=== PATIENT | female | born 1955 | race Caucasian/White ===

== ENCOUNTER 2016-09-29 08:15 | Day surgery (SDC) | payer OTHER ==
[~2016-09-29] VITALS: Ht 170.2 cm; Wt 95.0 kg
--- NOTE | 2016-09-29 07:32 | PCM.HPANE ---
Patient Data Surgeon Admitting Provider: Attending Provider:Shahid Parr MD Primary Care Physician:Octaviano Patterson ND Other Provider:Jovita Shell Anesthesia Reason for Visit Iron Deficiency Anemia Ht/WT & BMI Body Mass Index Allergies Coded Allergies: aspirin (Verified Allergy, Severe, throat closes, 01/29/16) lisinopril (Verified Allergy, Mild, cough, 01/29/16) metoprolol (Verified Allergy, Unknown, 01/29/16) Past Anesthesia History Anesthesia History: Denies:: Abnormal Airway, Anesthesia Reactions, Difficult Intubation, Fam Anesthesia Reaction, Fam Malignant Hypertherm, Malignant Hyperthermia Diabetes History Hx Diabetes?: Yes MRSA MRSA: No Medications Reported Medications Liraglutide (Victoza 2-Paco)0.6 Mg/0.1 Ml Pen.injctr0.6 Mg SQ DAILY 09/29/16 Sodium Chloride (Saline Nasal Mist)126 Ml Jdav892 Ml NS 09/28/16 Prednisone (PredniSONE)10 Mg Kncits90 Mg PO DAILY Ref 0 09/28/16 Metformin 500 Mg Tablet1,000 Mg PO BID Ref 0 09/28/16 Hydrocodone-Acetaminophen 5-325 mg 1 Each Tablet1 Tablet PO Q4H PRN For Pain Ref 0 09/28/16 Fluticasone Propionate (Fluticasone Propionate Nasal)16 Gm [place].susp1 [place] NS BID #16 GM Ref 0 09/28/16 Duloxetine 60 Mg Capsule.dr60 Mg PO DAILY Ref 0 09/28/16 Insulin Glargine (Lantus U100 Insulin Vial)100 Unit/Ml Qqld672 Unit SUBQ HS #1 VIAL Ref 0 04/23/16 Tiotropium [place] (Spiriva)18 Mcg Cap.w.dev18 Mcg IH DAILY Ref 0 03/04/16 Albuterol Sulfate (Ventolin HFA Inhaler)200 Puff/18 Gm Inhaler1 Puff INH Q4 PRN For Wheezing Ref 0 01/29/16 Lactobacillus Acidophilus (Probiotic)1 Each Capsule1 Each PO DAILY 01/29/16 Nitroglycerin SL 0.4 Mg Tab.subl0.4 Mg SL PRN PRN For Chest Pain #1 01/26/15 Cyclosporine (Restasis)1 Each Droperette1 Each BOTH_EYES DAILY 01/22/15 Lorazepam 1 Mg Tablet1 Mg PO TID PRN For Anxiety Ref 0 01/22/15 Methimazole 10 Mg Lnmpps35 Mg PO QAM 01/22/15 Montelukast 10 Mg Yfcdgp70 Mg PO HS 30 Days Ref 0 01/22/15 Insulin Human Lispro (HumaLOG U100 Insulin Vial)100 Unit/Ml Unit20 Units SUBQ TID-INSULIN #20 ML Ref 3 Check blood sugars before meals and at bedtime. Use correction factor only before meals. Blood Sugar Lispro Correction: <151, 0 units; 151-175, 1 unit; 176-200, 2 units; 201-225, 3 units; 226-250, 4 units; 251-275, 5 units; 276-300, 6 units; 301-325, 7 units; 326-350, 8 units; 351-375, 9 units; 376-400, 10 units; >400, 12 units. 01/22/15 Diltiazem ER 240 Mg Cap.er.43s378 Mg PO DAILY #30 CAPSULE Ref 0 01/22/15 Simvastatin 10 Mg Muhotp02 Mg PO HS 30 Days Ref 0 01/22/[address] 40 Mg Tablet.dr40 Mg PO BID 30 Days Ref 0 01/22/15 Losartan Potassium (Cozaar)50 Mg Usipfe71 Mg PO DAILY 01/22/15 Discontinued Reported Medications Temazepam 15 Mg Zpdfmbb80 Mg PO HS PRN For Insomnia 30 Days Ref 0 09/28/16 Liraglutide (Victoza 2-Paco)0.6 Mg/0.1 Ml Pen.injctr1.2 Mg SQ DAILY 09/21/16 Pregabalin (Lyrica)50 Mg Ajhllqf37 Mg PO TID Ref 0 03/23/16 Duloxetine (Cymbalta)30 Mg Capsule.dr30 Mg PO DAILY Ref 0 03/23/16 Oxycodone ER (Oxycontin)10 Mg Tab.er.12h5 Mg PO BID PRN For Pain 01/29/16 Dextran 70/Hypromellose/Pf (Artificial Tears Drops)1 Each Droperette1-2 Drop BOTH_EYES PRN DRY EYE 01/29/16 Ergocalciferol (Vitamin D2) (Vitamin D2)50,000 Unit Ipsoxcn70,000 Unit PO QW 30 Days 01/22/15 Budesonide/Formoterol 160-4.5 mcg Inh (Symbicort 160-4.5 mcg Inh)1 Puff Inha1 Puff IH BID #1 INH Ref 0 01/22/15 Metformin 1,000 Mg Tablet1,000 Mg PO BIDWM 30 Days Ref 0 01/22/15 History History of ENT Problems?: Yes HEENT History: Positive for:: Cataracts (removed 2013) Dysphagia Hearing Problem (RIGHT EAR) Sinus Problem Denies:: Abnormal Airway Difficult Intubation Hx of Heart Problems?: Yes Cardiovascular History: Positive for:: Chest Pain Edema (hands ) Hypertension Irregular Heartbeat (tachycardia ) Denies:: Atrial Fibrillation Cardiac Surgery Congestive Heart Failure Pacemaker Valvular Heart Disease Hx of Respiratory Problem?: Yes Respiratory History: Positive for:: Asthma COPD Dyspnea Emphysema Pneumonia (09/2010) Denies:: Chest Surgery Cough Hemoptysis Tuberculosis Hx Neurologic Problems?: Yes Neurological History: Positive for:: CVA (TIA IN 1998) Dizziness Headaches Denies:: Alzheimer's Disease Dementia Parkinson's Disease Seizures Hx of GI Problems?: Yes Gastrointestinal History: Positive for:: Gastroesphageal Reflux Gastrointestinal Bleeding (polyps, ) Heartburn Hepatitis (at age 17, unknown type) Hiatal Hernia Denies:: Cirrhosis Diverticulitis Rectal Bleeding Hx of Problems?: Yes Genitourinary History: Positive for:: Urinary Tract Infection (and kidney infections ) Denies:: HX of Hemodialysis Kidney Stones HX of Peritoneal Dialysis: No Female Hx: Positive for:: Pelvic Inflammatory Problems with Breasts? (spot on rt breast watching) Denies:: Currently Hx Musculoskeletal Problems?: Yes Musculoskeletal History: Positive for:: Back Injury Denies:: Joint Replacement Musculoskeletal Trauma Hx of Psycho/Social Problems?: Yes Psycho Social History: Positive for:: Anxiety Denies:: Hx Depression Hx Surgeries?: Yes (C SECTION, TUBAL LIGATION, Capal Tunnel, Cataracts) Hx Any Other Health Problems?: Yes Other History: Positive for:: Hospitalization Thyroid Disease History Blood Transfusions: Denies:: Blood Transfusions Hx Diabetes: Yes Hx Alcohol Use: NoHx Substance Use: No Smoking Status: Former Smoker Have You Smoked inLast 12 mo: No Stop/Bang MAYURI Risk Assessment: Low Risk, <3 Yes Risk Assessment Category Category 1A: Patient has history of documented sleep apnea, and HAS NOT received any narcotic, sedative or anesthesia administration during this stay. Category 1B: Patient has history of documented sleep apnea, and HAS received any narcotic , sedative or anesthesia administration during this stay Category 2: Patient has SUSPECTED Obstructive Sleep Apnea, and HAS received any narcotic , sedative or anesthesia administration during this stay. Category 3: Patient has SUSPECTED Obstructive Sleep Apnea and HAS NOT received narcotic, sedative or anesthesia administration during this stay. Category 4: Outpatient in Procedural Areas with known sleep apnea or who screen positive for High Risk via the STOP/BANG questionnaire. Exam Exam General Appearance: Alert, Oriented X3, Cooperative, No Acute Distress HEENT/AIRWAY: MP 2 Lungs: Clear to Auscultation, Normal Air Movement Heart: Exam Unremarkable, Regular Rate/Rhythm, No Murmurs/Rubs/Gallops Plan Impression Patient chart reviewed, patient interviewed and anesthestic plan with risks, benefits, and alternatives discussed, and informed consent obtained. ASA Physical Status: ASA3 Severe Disease Anesthetic Plan: MAC Bene/Risks/Altern/Consents: Yes HP Complete Prior to Induction: Yes Vi Neal MD Sep 29, 2016 07:32
[~2016-09-29 08:15] MED LIST: ALBU18HF INH; CYCL1DRO BOTH_EYES; DILT240C89 PO; DULO60CA61 PO; FLUT16SP NS; HYDR-4003 PO; INSLIS SUBQ; INSU100V7 SUBQ; LACT1CAP65 PO; LORA1TAB PO; LOSA50TA3 PO; Lactated Ringer's 1,000 ML IV ONE; METF500T4 PO; METH10TA4 PO; MONT10TA23 PO; NITR0.4T6 SL; PANT40TA3 PO; PRE10 PO; RES15 PO; SIMV10TA4 PO; SODI126M NS; TIOT18CA3 IH
[2016-09-29] MEDS ORDERED: Propofol 10,000 mCg/mL 20 mL Inj ONE (08:16)
[2016-09-29] MEDS ORDERED: fentaNYL-PF 50 mCg/mL 2 mL Inj ONE (08:16)
[2016-09-29 08:40] VITALS: BP 136/74; PULSE 101; RESP 16; O2SAT 96
[2016-09-29] MEDS ORDERED: LIRA0.6P SQ (08:45)
[2016-09-29] MEDS ORDERED: Lactated Ringer's 1,000 ML IV SCH (09:36)
--- NOTE | 2016-09-29 09:36 | PCM.ANEP2 ---
Post Anesthesia Evaluation ASA/CMS Post Anesthesia VS in Patient's Normal Range?: Yes Resp Stable; Airway Patent?: Yes CV Function & Hydration Stable: Yes Mental Status Recovered?: Yes Pain control Satisfactory?: Yes N/V Control Satisfactory?: Yes Vi Neal MD Sep 29, 2016 09:36
--- NOTE | 2016-09-29 09:36 | PCM.ANEP1 ---
Post Anesthesia Phase 1 PACU Phase 1 Assessment Vital Signs Vital Signs Date Time Temp Pulse Resp B/P Pulse Ox O2 Delivery O2 Flow Rate FiO2 09/29/16 08:40 36.0 101 16 136/74 96 Nasal Cannula 3 Level of Alertness: Awake, talking ROLAND's with Equal Strength: Yes Pain: No Oxygen Delivery: Nasal Cannula Lungs: Clear to Auscultation, Normal Air Movement Vi Neal MD Sep 29, 2016 09:36
[2016-09-29] MEDS ORDERED: Ondansetron 2 mg/mL 2 mL Inj IVPUSH PRN (09:40)
[2016-09-29] MEDS ORDERED: MetoCLOpramide 5 mg/mL 2 mL Inj IVPUSH PRN (09:40)
[2016-09-29 09:41] VITALS: BP 135/75; PULSE 86; RESP 16; O2SAT 97
[2016-09-29 09:50] VITALS: BP 115/70; PULSE 94; RESP 16; O2SAT 96
[2016-09-29 09:55] VITALS: BP 106/65; PULSE 95; RESP 16; O2SAT 97
--- NOTE | 2016-09-29 09:59 | ENDO ---
[address] [address] ENDOSCOPY PROCEDURE PATIENT: MAXIMINO REED : 1955 MR#: [id number] ADMIT: 09/29/2016 JOB ID: [id number] DATE: 09/29/2016 TYPE OF OPERATION: 1. Esophagogastroduodenoscopy with biopsy. 2. Colonoscopy with biopsy and snare polypectomy. PREOPERATIVE DIAGNOSIS(ES): Iron deficiency anemia. POSTOPERATIVE DIAGNOSIS(ES): 1. Normal upper endoscopy, status post biopsy. 2. A 1 cm broad-based ascending colon polyp status post normal saline lift status post piecemeal hot snare polypectomy status post two hemoclips placed. ANESTHESIA: Monitored anesthesia care. COMPLICATIONS: None. BLOOD LOSS: Minimal. DESCRIPTION OF PROCEDURE: After risks and benefits were explained to the patient, informed consent was obtained. After anesthesia administered, an upper endoscope was then inserted into the mouth and into the esophagus, stomach, second portion of duodenum. Mucosa carefully examined. After procedure was done, the scope withdrawn and procedure terminated. FINDINGS: Upon inspection of the esophagus, the esophagus was normal without masses, ulcers, or lesions. Z-line located 40 cm from the incisors. Upon entering the stomach, the stomach also was normal without masses, ulcers, lesions. Retroflexion was normal. Duodenal bulb, first and second portion are normal. Biopsies taken of the duodenum. A colonoscope was then inserted from the rectum to cecum. Mucosa carefully examined. Prep of the patient was fair. After procedure was done, the scope withdrawn and procedure terminated. FINDINGS: Upon inspection of the anus, no masses, hemorrhoids, ulcers, fissures that were seen. Throughout the entire examination, there was a 1 cm broad-based ascending colon polyp on which a tattoo was previously place is seen. Normal saline pillow lift was applied using sclerotherapy injection needle. Afterwards a piecemeal polypectomy was then performed and two hemoclips placed afterwards. Retroflexion was normal. IMPRESSIONS: 1. Normal upper endoscopy, status post biopsy. 2. A 1 cm broad-based polyp at the ascending colon, near a tattoo previously placed, status post normal saline pillow lift status post hot snare polypectomy in piecemeal fashion. The rest removed by cold biopsy forceps and two hemoclips placed. RECOMMENDATIONS: 1. Repeat colonoscopy in three years. 2. Await pathology results.
--- NOTE | 2016-09-30 16:25 | PATH ---
SURGICAL PATHOLOGY Attending Physician:Shahid Parr MD CASE STATUS: Signed Out PATIENT NAME: MAXIMINO REED PID: [id number] : 1955 DATE COLLECTED:09/29/2016 16:04 SPECIMEN: 1: Duodenum, Biopsy 2: Colon, Biopsy CLINICAL HISTORY: A: DUODENAL BIOPSY B: ASCENDING COLON POLYP FINAL DIAGNOSIS: 1.DUODENUM, BIOPSY: DUODENAL MUCOSA WITH NO DIAGNOSTIC ABNORMALITY. Negative for active inflammation, features of sprue, dysplasia, and malignancy. 2.ASCENDING COLON, POLYP, BIOPSY: TUBULAR ADENOMA. ICD10 CODE D12.2 GROSS DESCRIPTION: The specimen is received in two formalin filled containers labeled with the patient's name. 1). The specimen is sublabeled "duodenal" and consists of 2 portions of tissue which aggregate to 0.4 x 0.3 x 0.2 CM. The specimen is entirely submitted in cassette 1A. 2). The specimen is sublabeled "ascending colon polyp" and consists of 2 portions of tissue which aggregate to 0.3 x 0.3 x 0.2 CM. The specimen is entirely submitted in cassette 2A. 09/29/2016 [facility] MICRO DESCRIPTION: See diagnosis. ICD-9 CODES: CPT CODES: 1: 12562 2: 21995 Electronically Signed Out Jesika Torrez MD [facility] [address], [place] [address] Technical component performed at [facility], [facility] [address], [address]
[2016-11-11] MEDS ORDERED: LIRA0.6P SQ (15:08)
== END 2016-09-29 23:59 | disposition home or self-care (01) ==
LOC: END 08:15
PROVIDERS: ATTEND Internal Medicine Gastroenterology
DX: D12.2 Benign neoplasm of ascending colon (principal); D50.9 Iron deficiency anemia, unspecified; E11.42 Type 2 diabetes mellitus with diabetic polyneuropathy; Z79.4 Long term (current) use of insulin; I10 Essential (primary) hypertension; D72.828 Other elevated white blood cell count; I65.23 Occlusion and stenosis of bilateral carotid arteries; J44.9 Chronic obstructive pulmonary disease, unspecified; Z99.81 Dependence on supplemental oxygen
CPT/HCPCS: 43239; 45380; 45381; 45385; 88305; J2250; J3010; J7120